=== PATIENT | male | born 1950 | race Caucasian/White ===

== ENCOUNTER 2017-07-30 08:39 | Emergency (ER) | END 2017-07-30 11:20 | disposition home or self-care (01) ==

== ENCOUNTER 2018-08-28 06:17 | Emergency (ER) | payer OTHER ==
[~2018-08-28] VITALS: Ht 177.8 cm; Wt 81.4 kg
[~2018-08-28 06:17] MED LIST: AZIT250T PO; BENZ-6 PO
[2018-08-28 06:25] VITALS: BP 140/60; PULSE 71; RESP 18; Ht 177.8 cm; Wt 81.4 kg
[2018-08-28] MEDS ORDERED: PROM6.2515 PO (06:51)
[2018-08-28] MEDS ORDERED: IBUP-1542 PO (06:51)
--- NOTE | 2018-08-28 08:42 | ERD ---
ER Documentation Chief Complaint Chief Complaint cough/sore throat since yesterday. no sob. on 02 at lpm via ok at home HPI 68-year-old male presenting with cough and sore throat times 2 days. Patient denies any shortness of breath. He states is been a dry cough with no fevers. Patient also has lost his voice. Last took Tylenol 9 hours prior to my evaluation. Denies medical problems. NKDA. Surgical history denies. Up-to-date on vaccinations. Social history denies ROS All systems reviewed and are negative except as per history of present illness. Medications Home Meds Active Scripts Promethazine Hcl* (Promethazine Hcl* Syrup) 6.25 Mg/5 Ml Syrup, 6.25 MG PO Q6H PRN for COUGH, #100 ML Prov:ANTONIO VAIL PA-C 08/28/18 Ibuprofen* (Motrin*) 600 Mg Tab, 600 MG PO Q6, #30 TAB Prov:ANTONIO VAIL PA-C 08/28/18 Benzonatate* (Tessalon Perle*) 100 Mg Capsule, 100 MG PO Q8H PRN for COUGH, #20 CAP Prov:LITA MCCORMICK PA-C 07/30/17 Azithromycin* (Zithromax*) 250 Mg Tablet, 250 MG PO .ZPACK DIRECTED, #6 TAB TAKE 500 MG (2 TABS) THE FIRST DAY THEN 250 MG (1 TAB) DAYS 2-5 Prov:LITA MCCORMICK PA-C 07/30/17 Allergies Allergies: Coded Allergies: No Known Drug Allergies (Verified Allergy, Unknown, 08/28/18) PMhx/Soc Hx Respiratory Disorders: Yes (resp disease on 02 at home) Hx Alcohol Use: No Hx Substance Use: No FmHx Family History: No diabetes, No coronary disease, No other Physical Exam Vitals Vital Signs Date Temp Pulse Resp B/P (MAP) Pulse Ox O2 O2 Flow FiO2 Time Delivery Rate 08/28/18 98.2 71 18 140/60 96 06:25 (86) Physical Exam GENERAL: The patient is well-appearing, well-nourished, in no acute distress HEENT: Atraumatic. Conjunctivae are pink. Pupils equal, round, and reactive to light. There is no scleral icterus. Tympanic membranes clear bilaterally. Oropharynx clear. NECK: C-spine is soft and supple. There is no meningismus. There is no cerv ical lymphadenopathy. CHEST: Clear to auscultation bilaterally. There are no rales, wheezes or rhonchi. HEART: Regular rate and rhythm. No murmurs, clicks, rubs or gallops. Procedures/MDM MDM: 68-year-old male presenting with cough. Patient's lung sounds are stable and patient's oxygen levels are stable. Patient does not show signs shortness of breath and is not complaining of shortness of breath or respiratory problems. Patient has no fevers. Patient does have laryngitis noted. Patient is discharged stricter precautions and told to follow-up with primary care within 1-2 days for close evaluation. All questions answered at discharge Departure Diagnosis: Primary Impression: Laryngitis Additional Impression: Cough Condition: Stable Patient Instructions: Cough, Chronic, Uncertain Cause, (Adult), Laryngitis Additional Instructions: FOLLOW UP WITH YOUR PRIMARY CARE PHYSICIAN TOMORROW.Return to this facility if you are not improving as expected. ANTONIO VAIL PA-C Aug 28, 2018 08:42
== END 2018-08-28 07:56 | disposition home or self-care (01) ==
LOC: FTE 06:17
DX: J04.0 Acute laryngitis (principal)
CPT/HCPCS: 99283